=== PATIENT | female | born 1945 | race Caucasian/White ===

== ENCOUNTER 2017-07-05 13:14 | Observation (INO) | payer MEDICARE, BC ==
[2017-07-05] MEDS ORDERED: Sodium Chloride 0.9% 1000 ML 1,000 ML IV STA (13:44)
[2017-07-05] MEDS ORDERED: Zofran 4 MG/2 ML VIAL IV ONE (13:44)
--- NOTE | 2017-07-05 13:52 | ERPHSYRPT ---
- History of Present Illness Time Seen by Provider: 07/05/17 13:47 Historian: patient Exam Limitations: no limitations Patient Subjective Stated Complaint: pt started having n/v/d this morning, was able to keep some fluids down, abd cramping off and on,.no fever Triage Nursing Assessment: pt alert, resp easy, abd soft, no edema noted, moves all ext well, Physician History: patient began vomiting and diarrhea at 2 AM today. Patient has had similar episodes and thought she ate some "bad popcorn" prior to episode. Patient noted she had more than 5 episodes of diarrhea and approximately 3 episodes of vomiting. Patient also complaining of generalize, intermittent abdominal crampiness, especially with vomiting and diarrhea. Patient tried drinking a glass of water, but noted she had an episode of diarrhea and vomiting afterwards. Patient presently without any abdominal pain. Patient denies any recent fever, dysuria, frequency or urgency. Patient denies any blood in stools or urine. Timing/Duration: today (Began at 2AM), intermittent Activities at Onset: none Quality: cramping Abdominal Pain Onset Location: generalized abdomen Pain Radiation: no radiation Severity of Pain-Max: mild Severity of Pain-Current: mild Modifying Factors: Improves With: eating (worsens), vomiting (worsens) Associated Symptoms: diarrhea, vomiting, weakness, No diaphoresis, No fever/ chills, No heartburn, No loss of appetite, No shortness of breath Hx Influenza Vaccination/Date Given: Yes Hx Pneumococcal Vaccination/Date Given: Yes Immunizations Up to Date: Yes - Review of Systems Constitutional: Malaise, Weakness, No Fever, No Chills Eyes: No Symptoms Ears, Nose, & Throat: No Symptoms Respiratory: No Cough, No Dyspnea Cardiac: No Chest Pain, No Edema, No Syncope Abdominal/Gastrointestinal: Abdominal Pain, Nausea, Vomiting, Diarrhea, No Melena Genitourinary Symptoms: No Symptoms, No Dysuria, No Frequency, No Hematuria Musculoskeletal: No Symptoms (via 6), No Back Pain, No Neck Pain Skin: No Symptoms, No Rash Neurological: No Dizziness, No Focal Weakness, No Sensory Changes Psychological: No Symptoms Endocrine: No Symptoms Hematologic/Lymphatic: No Symptoms Immunological/Allergic: No Symptoms All Other Systems: Reviewed and Negative - Past Medical History Pertinent Past Medical History: Yes Cardiac History: Congenital Heart Disease, High Cholesterol, Hypertension Respiratory History: Asthma, COPD Endocrine Medical History: Diabetes Type II Other Medical History: epstin franco virus - Past Surgical History Past Surgical History: Yes Musculoskeletal: Orthopedic Surgery Female Surgical History: Hysterectomy Other Surgical History: knee surg - Social History Smoking Status: Never smoker Exposure to second hand smoke: No Drug Use: none Patient Lives Alone: No - Female History Hx Last Menstrual Period: post Hx Now: No - Nursing Vital Signs Nursing Vital Signs: Initial Vital Signs Temperature 98.2 F 07/05/17 13:24 Pulse Rate 96 H 07/05/17 13:24 Respiratory Rate 16 07/05/17 13:24 Blood Pressure 184/78 07/05/17 13:24 O2 Sat by Pulse Oximetry 97 07/05/17 13:24 Pain Scale Pain Intensity 2 - Physical Exam General Appearance: no apparent distress, alert Eye Exam: PERRL/EOMI, eyes nml inspection Ears, Nose, Throat Exam: normal ENT inspection, pharynx normal, dry mucous membranes (slighty) Neck Exam: normal inspection, non-tender, supple, full range of motion Respiratory Exam: normal breath sounds, lungs clear, No respiratory distress Cardiovascular Exam: regular rate/rhythm, normal heart sounds Gastrointestinal/Abdomen Exam: soft, No tenderness, No mass Back Exam: normal inspection, normal range of motion, No CVA tenderness, No vertebral tenderness Extremity Exam: normal inspection, normal range of motion, pelvis stable Neurologic Exam: alert, oriented x 3, cooperative, normal mood/affect, nml cerebellar function, sensation nml, No motor deficits Skin Exam: normal color, warm, dry SpO2: 97 Oxygen Delivery: Room Air - Course Nursing assessment & vital signs reviewed: Yes Ordered Tests: Active Orders 24 hr Category Date Time Status IV Insertion STAT Care 07/05/17 13:44 Active cath [Cath for Specimen-Straight] STAT Care 07/05/17 14:40 Active ABDOMEN AND PELVIS W/0 CONTRAS [CT] Stat Exams 07/05/17 14:58 Completed OBSTR/ACUTE ABDOMEN SERIES Stat Exams 07/05/17 13:45 Completed AMYLASE Stat Lab 07/05/17 14:25 Completed CBC W DIFF Stat Lab 07/05/17 14:25 Completed CMP Stat Lab 07/05/17 14:25 Completed LIPASE Stat Lab 07/05/17 14:25 Completed Manual Differential NC Stat Lab 07/05/17 14:25 Completed UA W/ MICROSCOPIC Stat Lab 07/05/17 14:25 Completed Medication Summary Discontinued Medications Generic Name Dose Route Start Last Admin Trade Name Tracy PRN Reason Stop Dose Admin Sodium Chloride 1,000 mls @ 999 mls/hr 07/05/17 13:44 07/05/17 14:17 Sodium Chloride 0.9% 1000 Ml IV 07/05/17 14:44 999 mls/hr .Q1H1M STA Administration Sodium Chloride Confirm 07/05/17 13:55 Sodium Chloride 0.9% 1000 Ml Administered 07/05/17 13:56 Dose 1,000 mls @ ud .ROUTE .STK-MED ONE Ondansetron HCl 4 mg 07/05/17 13:44 07/05/17 14:17 Zofran 4 Mg/2 Ml Vial IV 07/05/17 13:45 4 mg STAT ONE Administration Ondansetron HCl Confirm 07/05/17 13:55 Zofran 4 Mg/2 Ml Vial Administered 07/05/17 13:56 Dose 4 mg .ROUTE .STK-MED ONE Lab/Rad Data: Laboratory Result Diagrams 07/05/17 14:25 07/05/17 14:25 Laboratory Results 07/05/17 07/05/17 07/05/17 Range/Units 14:25 14:25 14:25 WBC 15.4 H (4.0-10.5) K/mm3 RBC 4.52 (4.1-5.4) M/mm3 Hgb 13.7 (12.0-16.0) gm/dl Hct 43.1 (35-47) % MCV 95.4 (78-100) fl MCH 30.3 (26-32) pg MCHC 31.8 L (32-36) g/dl RDW 13.6 (11.5-14.0) % Plt Count 231 (150-450) K/mm3 MPV 10.3 H (6-9.5) fl Segmented Neutrophils 89 H (36.0-66.0) % Band Neutrophils 4 H (0.0-2.0) % Lymphocytes (Manual) 2 L (24-44) % Monocytes (Manual) 3 (0.0-12.0) % Eosinophils (Manual) 1 (0.00-3.0) % Metamyelocytes 1 % Differential Comment NORMAL Platelet Estimate NORMAL (NORMAL) Sodium 139 (136-145) mEq/L Potassium 5.3 H (3.5-5.1) mEq/L Chloride 102 (98-107) mEq/L Carbon Dioxide 27.3 (21-32) mEq/L Anion Gap 15.2 H (5-15) MEQ/L BUN 34 H (9-20) mg/dL Creatinine 1.55 H (0.55-1.30) mg/dl Estimated GFR 35 ML/MIN Glucose 145 H (70-110) MG/DL Calcium 9.0 (8.5-10.1) mg/dL Total Bilirubin 0.50 (0.2-1.0) mg/dL AST 39 H (15-37) U/L ALT 47 (12-78) U/L Alkaline Phosphatase 80 (46-116) U/L Serum Total Protein 7.6 (6.4-8.2) gm/dL Albumin 3.8 (3.4-5.0) g/dL Amylase 55 (25-115) U/L Lipase 178 (73-393) U/L Ur Collection Type CATH Urine Color YELLOW (YELLOW) Urine Appearance CLEAR (CLEAR) Urine pH 5.0 (5-6) Ur Specific [place] 1.015 (1.005-1.025) Urine Protein NEGATIVE (Negative) Urine Ketones NEGATIVE (NEGATIVE) Urine Blood 5-10 (0-5) Marc/ul Urine Nitrite NEGATIVE (NEGATIVE) Urine Bilirubin NEGATIVE (NEGATIVE) Urine Urobilinogen NORMAL (0-1) mg/dL Ur Leukocyte Esterase NEGATIVE (NEGATIVE) Urine Microscopic RBC 0-2 (0-2) /HPF Urine Microscopic WBC 0-2 (0-5) /HPF Ur Epithelial Cells RARE (FEW) /HPF Urine Bacteria RARE (NEGATIVE) /HPF Urine Mucus SLIGHT (NEGATIVE) /HPF Urine Culture Reflexed NO (NO) Urine Glucose NEGATIVE (NEGATIVE) mg/dL Specimen Received 07/05/17 1420 - Progress Progress: unchanged Progress Note: 07/05/17 13:52 patient was given Zofran and IV fluids. Patient states she still feels nauseated. 07/05/17 16:[address] Manning (Dr. Manning was notified and agreed to admission) Will see patient in: hospital (observation) Counseled pt/family regarding: lab results (normal for), diagnosis, rad results - Departure Time of Disposition: 16:18 Departure Disposition: Observation Clinical Impression: Ileus, Dehydration Condition: Stable Critical Care Time: No Referrals: TIFFANI HICKS MD [Primary Care Provider] -
[2017-07-05] MEDS ORDERED: Sodium Chloride 0.9% 1000 ML 1,000 ML ONE (13:55)
[2017-07-05] MEDS ORDERED: Zofran 4 MG/2 ML VIAL ONE (13:55)
--- NOTE | 2017-07-05 14:12 | XRAY ---
Indication: Diarrhea and vomiting. Weakness. Comparison: None 2 views of the abdomen demonstrates nonspecific nonobstructed bowel gas pattern. Known large gallstone. Remaining solid organs unremarkable. Osseous structures intact with mild multilevel degenerative spondylosis and mild double curvature scoliosis. Single PA chest demonstrates normal heart and lungs with a few calcified granulomas. Bony thorax intact with mild degenerative changes. Comparison: 1. Nonacute nonobstructed abdomen. 2. Large gallstone as seen on CT abdomen/pelvis April 13, 2017. 3. Nonacute 1 view chest with evidence for old granulomatous disease.
[2017-07-05 14:36] LABS: Mean Cell Volume 95.4 fl (78-100); Mean Corpuscular Hemoglobin 30.3 pg (26-32); Mean Platelet Volume 10.3 fl (6-9.5); Platelet Count 231 K/mm3 (150-450); Red Blood Count 4.52 M/mm3 (4.1-5.4); Red Cell Distribution Width 13.6 % (11.5-14.0); White Blood Count 15.4 K/mm3 (4.0-10.5)
[2017-07-05 14:43] LABS: ADD URINE CULTURE? NO (NO); Bacteria RARE /HPF (NEGATIVE); Bilirubin NEGATIVE (NEGATIVE); COMPLETE URINE MICROSCOPIC? YES; Collection Type CATH; Epithelial Cells RARE /HPF (FEW); Glucose NEGATIVE (NEGATIVE); Leukocyte Esterase NEGATIVE (NEGATIVE); Mucus SLIGHT /HPF (NEGATIVE); WBC 0-2 /HPF (0-5)
[2017-07-05 14:57] LABS: ALBUMIN 3.8 g/dL (3.4-5.0); ANION GAP 15.2 MEQ/L (5-15); BILIRUBIN,TOTAL 0.5 mg/dL (0.2-1.0); Carbon Dioxide 27.3 mEq/L (21-32); Potassium 5.3 mEq/L (3.5-5.1); Total Protein 7.6 gm/dL (6.4-8.2)
[2017-07-05 15:00] LABS: BAND 4 % (0.0-2.0); Eosinophil 1 % (0.00-3.0); Metamyelocyte 1 %; Total Cells Counted 100
[2017-07-05 15:01] LABS: Platelet Estimate NORMAL (NORMAL)
--- NOTE | 2017-07-05 15:30 | XRAY ---
Indication: Abdominal pain, vomiting, diarrhea, and dizziness. Multiple contiguous axial images obtained through the abdomen and pelvis without contrast as ordered. Comparison: None Lung bases demonstrates stable well-circumscribed subcentimeter noncalcified nodule in the left lower lobe probably granulomatous. No infiltrate or effusion. Heart is not enlarged. Noncontrasted stomach and bowel loops again appear nonobstructed. Mild fluid distended small and large bowel loops throughout with some fluid leveling, ileus versus enterocolitis. Normal appendix. Stable minimal sigmoid diverticulosis without diverticulitis. No free fluid/air. Stable right pelvic kidney, fatty liver, 3 cm gallstone, and hysterectomy. Remaining liver, pancreas, spleen, adrenal glands, left kidney, ureters, and bladder appear unremarkable for noncontrast exam. There remains minimal aortoiliac calcifications without AAA. Osseous structures intact with stable degenerative changes throughout the spine and mild scoliosis. Impression: 1. Mild fluid distended small and large bowel loops with some fluid leveling, ileus versus enterocolitis. 2. Stable right pelvic kidney, sigmoid diverticulosis, large gallstone, and fatty liver. 3. Remaining CT abdomen/pelvis without contrast exam is negative. CT DI 26.97
[2017-07-05] MEDS ORDERED: Zofran 4 MG/2 ML VIAL IV PRN (16:22)
[2017-07-05] MEDS: Sodium Chloride 0.9% 1000 ML 1,000 ML IV SCH (17:59)
[2017-07-05] MEDS ORDERED: NovoLOG Insulin SQ PRN (18:13)
[2017-07-05] MEDS ORDERED: Ecotrin 325 MG PO PRN (23:11)
[2017-07-06] MEDS: Sodium Chloride 0.9% 1000 ML 1,000 ML IV SCH ×3 (01:59→18:06)
[2017-07-06 05:50] LABS: BASOPHIL % 0.1 % (0.0-0.4); Eosinophil % 1.1 % (0.00-5.0); Granulocytes % 76.3 % (36.0-66.0); Lymphocytes % 10.2 % (24.0-44.0); Mean Cell Volume 97.3 fl (78-100); Mean Platelet Volume 10.4 fl (6-9.5); Monocytes % 12.3 % (0.0-12.0); Platelet Count 189 K/mm3 (150-450); Red Blood Count 3.77 M/mm3 (4.1-5.4); Red Cell Distribution Width 14.2 % (11.5-14.0); White Blood Count 8.2 K/mm3 (4.0-10.5)
[2017-07-06 05:54] LABS: Mean Corpuscular Hemoglobin 30.7 pg (26-32)
[2017-07-06 06:16] LABS: ALBUMIN 3.1 g/dL (3.4-5.0); ANION GAP 12.5 MEQ/L (5-15); BILIRUBIN,TOTAL 0.4 mg/dL (0.2-1.0); Potassium 4.3 mEq/L (3.5-5.1); Total Protein 6.3 gm/dL (6.4-8.2)
[2017-07-06] MEDS ORDERED: Artificial Tears 15 ML OP PRN ×2 (09:05→09:45)
[2017-07-06] MEDS: Zosyn 3.375GM/100 Ml D5W 3.375 GM/100 ML IVPB IV SCH ×3 (09:19→23:14)
[2017-07-06] MEDS: ENOXAPARIN SODIUM SQ SCH (09:19)
[2017-07-06] MEDS: Ecotrin 325 MG PO PRN ×2 (14:39→22:02)
--- NOTE | 2017-07-06 14:46 | PCM.HP ---
History of Present Illness - Chief Complaint Chief Complaint: dehydration History of Present Illness: is a 72 year old female pt with an pneumatic jacketer in [place] who started having vomiting and numerous episodes of diarrhea yesterday morning at 2 am. About 11 hours later she decided to come to the ER, where she was dx wiht ileus and admitted NPO. This morning I saw her briefly; she had had fever and was started on IV zosyn. I did advance her diet to clear liquids. she has tolerated that without any vomiting; continues to have some diarrhea. Chronically, she has suffered for years from diarrhea. currently she denies any abd pain andis c/o some ERWIN. - Review of Systems Constitutional: Fever, Chills Abdominal/Gastrointestinal: Abdominal Pain, Nausea, Vomiting, Diarrhea Neurological: Headache Psychological: No Depression, No Suicidal Ideations Hematologic/Lymphatic: Anemia All Other Systems: Reviewed and Negative Medications & Allergies Home Medications: Home Medication List Clonazepam 1.5 mg PO HS 07/05/17 [History Confirmed 07/05/17] Digoxin 0.25 mg PO DAILY 07/05/17 [History Confirmed 07/05/17] Eluxadoline [Viberzi] 100 mg PO BID 07/05/17 [History Confirmed 07/05/17] Escitalopram Oxalate [Lexapro] 20 mg PO DAILY 07/05/17 [History Confirmed ] Hydrochlorothiazide 12.5 mg PO DAILY 07/05/17 [History Confirmed 07/05/17] Insulin Glargine [Lantus Insulin] 70 units SQ QAM 07/05/17 [History Confirmed ] Lisinopril 20 mg [Zestril 20 MG] 40 mg PO DAILY 07/05/17 [History Confirmed 07/05/17] Metformin HCl [Metformin HCl ER] 4 tab PO EVENING MEAL 07/05/17 [History Confirmed 07/05/17] Metoprolol Succinate 100 mg [Toprol Xl 100 MG] 200 mg PO DAILY 07/05/17 [ History Confirmed 07/05/17] Mirtazapine 30 mg PO DAILY 07/05/17 [History Confirmed 07/05/17] Omeprazole 20 MG [Prilosec 20 mg] 20 mg PO BID 07/05/17 [History Confirmed 07/05] Pravastatin Sodium 20 mg PO DAILY 07/05/17 [History Confirmed 07/05/17] Sitagliptin Phosphate [Januvia] 100 mg PO DAILY 07/05/17 [History Confirmed ] Temazepam 30 mg PO HS 07/05/17 [History Confirmed 07/05/17] Allergies/Adverse Reactions: Allergies Allergy/AdvReac Type Severity Reaction Status Date / Time acetaminophen [From Tylenol] Allergy Unknown unknown Verified 07/06/17 12:07 ibuprofen [From Motrin] Allergy Unknown unknown Verified 07/06/17 12:08 misoprostol [From Cytotec] Allergy Unknown Verified 07/06/17 12:07 amantadine Allergy Verified 07/05/17 17:28 bupropion [From Wellbutrin] Allergy Headache Verified 07/05/17 17:28 carbamazepine [From Tegretol] Allergy Verified 07/05/17 17:28 cefuroxime [From Ceftin] Allergy Verified 07/05/17 17:28 cephalexin [From Keflex] Allergy Verified 07/05/17 17:28 ciprofloxacin [From Cipro] Allergy Verified 07/05/17 17:28 clarithromycin [From Biaxin] Allergy Verified 07/05/17 17:28 fluoxetine [From Prozac] Allergy Verified 07/05/17 17:28 fluticasone [From Flonase] Allergy Verified 07/05/17 17:28 gabapentin [From Neurontin] Allergy Verified 07/05/17 17:28 lidocaine Allergy Verified 07/05/17 17:28 methylprednisolone Allergy Verified 07/05/17 17:28 montelukast [From Singulair] Allergy Verified 07/05/17 17:28 oxybutynin Allergy Verified 07/05/17 17:28 sulfamethoxazole Allergy Verified 07/05/17 17:28 sumatriptan [From Imitrex] Allergy Verified 07/05/17 17:28 terfenadine [From Seldane] Allergy Verified 07/05/17 17:28 trimethoprim [From Septra] Allergy Verified 07/05/17 17:28 - Past Medical History Past Medical History: Yes Neurological History: Migraines, Peripheral Neuropathy ENT History: Cataracts Cardiac History: Congenital Heart Disease, High Cholesterol, Hypertension Respiratory History: Asthma, COPD Endocrine Medical History: Diabetes Type II Musculoskelatal History: Degenerative Disk Disease GI Medical History: GERD, Irritable Bowel History: Renal Disease Pyscho-Social History: Anxiety, Depression Reproductive Disorders: Fibroids Comment: epstin franco virus - Female History Hx Last Menstrual Period: post Are you now?: No - Past Surgical History Past Surgical History: Yes Neuro Surgical History: No Pertinent History Cardiac History: No Pertinent History Respiratory Surgery: No Pertinent History GI Surgical History: No Pertinent History Genitourinary Surgical Hx: No Pertinent History Musculskeletal Surgical Hx: Orthopedic Surgery Female Surgical History: Hysterectomy Other Surgical History: knee surg - Social History Smoking Status: Never smoker Exposure to second hand smoke: No Alcohol: None Drug Use: none - Physical Exam Vital Signs: Vital Signs - 24 hr Temp Pulse Resp BP Pulse Ox 07/06/17 12:09 98.4 F 07/06/17 07:27 99.4 F 99 H 20 126/60 97 07/06/17 04:00 99.9 F 95 H 24 123/58 95 07/06/17 01:18 100.6 F 07/05/17 23:53 101.6 F 97 H 24 103/55 07/05/17 19:47 98.8 F 112 H 25 H 136/77 95 07/05/17 17:20 98.4 F 92 H 20 132/57 92 L 07/05/17 16:59 98.4 F 92 H 20 132/57 92 L 07/05/17 16:18 97 07/05/17 16:15 92 H 16 151/66 94 L General Appearance: no apparent distress, anxiety Neurologic Exam: oriented x 3, cooperative Eye Exam: eyes nml inspection Neck Exam: normal inspection, non-tender, supple, No lymphadenopathy Respiratory Exam: normal breath sounds, lungs clear, No crackles/rales, No rhonchi, No wheezing Cardiovascular Exam: regular rate/rhythm, normal heart sounds, murmur (II/ sys murmur) Gastrointestinal/Abdomen Exam: soft, normal bowel sounds, No tenderness, No distention, No mass, No guarding, No rebound Back Exam: normal inspection, No rash Extremity Exam: normal inspection, swelling (trace pretibial edema bilat) Results - Labs Lab/Micro Results: Accuchecks Date 07/06/17 Date 07/06/17 Date 07/06/17 Date 07/05/17 Date 07/05/17 Time 12:00 Time 07:30 Time 04:28 Time 23:57 Time 22:16 Accucheck Value: 130 Accucheck Value: 111 Accucheck Value: 94 Accucheck Value: 89 Accucheck Value: 105 Lab Results-Last 24 Hours 07/05/17 07/06/17 07/06/17 Range/Units 18:04 05:15 05:15 WBC 8.2 (4.0-10.5) K/mm3 RBC 3.77 L (4.1-5.4) M/mm3 Hgb 11.6 L (12.0-16.0) gm/dl Hct 36.7 (35-47) % MCV 97.3 (78-100) fl MCH 30.7 (26-32) pg MCHC 31.6 L (32-36) g/dl RDW 14.2 H (11.5-14.0) % Plt Count 189 (150-450) K/mm3 MPV 10.4 H (6-9.5) fl Gran % 76.3 H (36.0-66.0) % Lymphocytes % 10.2 L (24.0-44.0) % Monocytes % 12.3 H (0.0-12.0) % Eosinophils % 1.1 (0.00-5.0) % Basophils % 0.1 (0.0-0.4) % Basophils # 0.01 (0-0.4) Sodium 141 (136-145) mEq/L Potassium 4.3 (3.5-5.1) mEq/L Chloride 106 (98-107) mEq/L Carbon Dioxide 27.0 (21-32) mEq/L Anion Gap 12.5 (5-15) MEQ/L BUN 25 H (9-20) mg/dL Creatinine 1.29 (0.55-1.30) mg/dl Estimated GFR 43 ML/MIN Glucose 109 (70-110) MG/DL Hemoglobin A1c 6.4 H (4.5-6.2) Calcium 8.2 L (8.5-10.1) mg/dL Total Bilirubin 0.40 (0.2-1.0) mg/dL AST 48 H (15-37) U/L ALT 40 (12-78) U/L Alkaline Phosphatase 60 (46-116) U/L Serum Total Protein 6.3 L (6.4-8.2) gm/dL Albumin 3.1 L (3.4-5.0) g/dL Accuchecks Date 07/06/17 Date 07/06/17 Date 07/06/17 Date 07/05/17 Date 07/05/17 Time 12:00 Time 07:30 Time 04:28 Time 23:57 Time 22:16 Accucheck Value: 130 Accucheck Value: 111 Accucheck Value: 94 Accucheck Value: 89 Accucheck Value: 105 Assessment/Plan (1) Ileus Current Visit: Yes Status: Acute Assessment & Plan: treating for intra-abdominal infection wiht her Tmax to 101.6. On Zosyn IV. Advance diet to full liquids. Code(s): K56.7 - ILEUS, UNSPECIFIED (2) Chronic renal failure Current Visit: Yes Status: Acute Qualifiers: Chronic kidney disease stage: stage 3 (moderate) Qualified Code(s): N18.3 - Chronic kidney disease, stage 3 (moderate) Assessment & Plan: Sees Dr. Briscoe. (3) Dehydration Current Visit: Yes Status: Acute Assessment & Plan: improved. Will continue her on IVF. 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 Code(s): B27.90 - INFECTIOUS MONONUCLEOSIS, UNSPECIFIED WITHOUT COMPLICATION
[2017-07-07] MEDS: Sodium Chloride 0.9% 1000 ML 1,000 ML IV SCH (03:19)
[2017-07-07] MEDS: Zosyn 3.375GM/100 Ml D5W 3.375 GM/100 ML IVPB IV SCH ×2 (05:24→11:31)
[2017-07-07 06:15] LABS: BASOPHIL % 0.3 % (0.0-0.4); Eosinophil % 5.8 % (0.00-5.0); Granulocytes % 57.1 % (36.0-66.0); Lymphocytes % 19.1 % (24.0-44.0); Mean Corpuscular Hemoglobin 30.8 pg (26-32); Mean Platelet Volume 9.7 fl (6-9.5); Monocytes % 17.7 % (0.0-12.0); Platelet Count 155 K/mm3 (150-450); Red Blood Count 3.44 M/mm3 (4.1-5.4); White Blood Count 5.9 K/mm3 (4.0-10.5)
[2017-07-07 06:54] LABS: ANION GAP 11.1 MEQ/L (5-15); Carbon Dioxide 28.1 mEq/L (21-32); Potassium 3.8 mEq/L (3.5-5.1)
[2017-07-07 06:57] VITALS: PULSE 80; O2SAT 90
[2017-07-07] MEDS: ENOXAPARIN SODIUM SQ SCH (09:35)
[2017-07-07 11:18] VITALS: BP 142/62
--- NOTE | 2017-07-07 12:48 | PCM.DS ---
Discharge Summary Date of Admission: 07/05/17 16:45 Admitting Physician: ADAM DAVENPORT Primary Care Provider: TIFFANI HICKS Allergies Allergies acetaminophen [From Tylenol] Allergy (Unknown, Verified 07/06/17 12:07) unknown ibuprofen [From Motrin] Allergy (Unknown, Verified 07/06/17 12:08) unknown pt does not remember only knows its an allergy. misoprostol [From Cytotec] Allergy (Unknown, Verified 07/06/17 12:07) amantadine Allergy (Verified 07/05/17 17:28) bupropion [From Wellbutrin] Allergy (Verified 07/05/17 17:28) Headache carbamazepine [From Tegretol] Allergy (Verified 07/05/17 17:28) cefuroxime [From Ceftin] Allergy (Verified 07/05/17 17:28) cephalexin [From Keflex] Allergy (Verified 07/05/17 17:28) ciprofloxacin [From Cipro] Allergy (Verified 07/05/17 17:28) clarithromycin [From Biaxin] Allergy (Verified 07/05/17 17:28) fluoxetine [From Prozac] Allergy (Verified 07/05/17 17:28) fluticasone [From Flonase] Allergy (Verified 07/05/17 17:28) gabapentin [From Neurontin] Allergy (Verified 07/05/17 17:28) lidocaine Allergy (Verified 07/05/17 17:28) methylprednisolone Allergy (Verified 07/05/17 17:28) montelukast [From Singulair] Allergy (Verified 07/05/17 17:28) oxybutynin Allergy (Verified 07/05/17 17:28) sulfamethoxazole Allergy (Verified 07/05/17 17:28) sumatriptan [From Imitrex] Allergy (Verified 07/05/17 17:28) terfenadine [From Seldane] Allergy (Verified 07/05/17 17:28) trimethoprim [From Septra] Allergy (Verified 07/05/17 17:28) Hospital Summary - Hospital Course Hospital Course: Pt admitted through ER with ileus, started running a fever over 101 the next day and started on IV zosyn. She has had some diarrhea in the hospital (she does have chronic diarrhea; this was c. diff negative). She has tolerated clear and full liquid diets. Denying any abdominal pain. Afebrile for 24 hours. Would like to go home; will discharge home on po augmentin and bland diet x 4-5 days. - Vitals & Intake/Output Vital Signs: Vital Signs Temperature 98.1 F 07/07/17 11:17 Pulse Rate 80 07/07/17 11:17 Respiratory Rate 16 07/07/17 11:17 Blood Pressure 142/62 07/07/17 11:17 O2 Sat by Pulse Oximetry 90 L 07/07/17 11:17 Intake & Output: Intake & Output 07/05/17 07/06/17 07/07/17 07/08/17 11:59 11:59 11:59 11:59 Intake Total 1111 3188 Output Total 1050 1250 Balance 61 1938 Weight 103.873 kg - Lab Result Diagrams: 07/07/17 06:00 07/07/17 06:00 Lab Results-Last 24 Hrs: Accuchecks Date 07/07/17 Date 07/07/17 Date 07/07/17 Date 07/06/17 Date 07/06/17 Date 07/06/17 Time 12:00 Time 08:00 Time 04:17 Time 23:51 Time 19:28 Time 16:00 Accucheck Value: 117 Accucheck Value: 126 Accucheck Value: 123 Accucheck Value: 126 Accucheck Value: 144 Accucheck Value: 116 Lab Results-Last 24 Hours 07/06/17 07/07/17 07/07/17 Range/Units 18:15 06:00 06:00 WBC 5.9 (4.0-10.5) K/mm3 RBC 3.44 L (4.1-5.4) M/mm3 Hgb 10.6 L (12.0-16.0) gm/dl Hct 33.7 L (35-47) % MCV 98.0 (78-100) fl MCH 30.8 (26-32) pg MCHC 31.5 L (32-36) g/dl RDW 14.0 (11.5-14.0) % Plt Count 155 (150-450) K/mm3 MPV 9.7 H (6-9.5) fl Gran % 57.1 (36.0-66.0) % Lymphocytes % 19.1 L (24.0-44.0) % Monocytes % 17.7 H (0.0-12.0) % Eosinophils % 5.8 H (0.00-5.0) % Basophils % 0.3 (0.0-0.4) % Basophils # 0.02 (0-0.4) Sodium 142 (136-145) mEq/L Potassium 3.8 (3.5-5.1) mEq/L Chloride 107 (98-107) mEq/L Carbon Dioxide 28.1 (21-32) mEq/L Anion Gap 11.1 (5-15) MEQ/L BUN 13 (9-20) mg/dL Creatinine 1.00 (0.55-1.30) mg/dl Estimated GFR 58 ML/MIN Glucose 150 H (70-110) MG/DL Calcium 8.1 L (8.5-10.1) mg/dL Stl C. diff Tox B Gene NEGATIVE (NEGATIVE) C.difficile [id number] PRESUMPTIVE NEGATIVE (NEGATIVE) Micro Results-Entire Visit: Accuchecks Date 07/07/17 Date 07/07/17 Date 07/07/17 Date 07/06/17 Date 07/06/17 Date 07/06/17 Time 12:00 Time 08:00 Time 04:17 Time 23:51 Time 19:28 Time 16:00 Accucheck Value: 117 Accucheck Value: 126 Accucheck Value: 123 Accucheck Value: 126 Accucheck Value: 144 Accucheck Value: 116 Discharge Exam General Appearance: no apparent distress, alert, obese Neurologic Exam: oriented x 3, cooperative Skin Exam: normal color, warm, dry, No rash Respiratory Exam: normal breath sounds, lungs clear, No crackles/rales, No rhonchi, No wheezing Cardiovascular Exam: regular rate/rhythm, normal heart sounds, No murmur Gastrointestinal/Abdomen Exam: soft, normal bowel sounds, No tenderness, No distention, No mass, No guarding, No rebound Extremity Exam: No pedal edema, No swelling Back Exam: normal inspection, No rash Final Diagnosis/Problem List - Final Discharge Diagnosis/Problem (1) Colitis Current Visit: Yes Status: Acute Assessment & Plan: Have been treating as for infectious colitis (c. diff negative) - home on augmentin. Advised any return of fever, increase in pain she is to call or return to hospital. Would wait 4-5 d before resuming her home Viberzi. (2) Ileus Current Visit: Yes Status: Acute Assessment & Plan: Much improved. Home on bland diet today. (3) Chronic renal failure Current Visit: Yes Status: Chronic Assessment & Plan: Cr today was 1.0. 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 - Discharge Disposition: Home, Self-Care Condition: Stable Prescriptions: New Amoxicillin/Potassium Clav [Augmentin 875-125 Tablet] 875 mg PO BID #16 tablet Continue Metoprolol Succinate 100 mg [Toprol Xl 100 MG] 200 mg PO DAILY Lisinopril 20 mg [Zestril 20 MG] 40 mg PO DAILY Insulin Glargine [Lantus Insulin] 70 units SQ QAM Omeprazole 20 MG [Prilosec 20 mg] 20 mg PO BID Mirtazapine 30 mg PO DAILY Metformin HCl [Metformin HCl ER] 4 tab PO EVENING MEAL Digoxin 0.25 mg PO DAILY Hydrochlorothiazide 12.5 mg PO DAILY Eluxadoline [Viberzi] 100 mg PO BID Sitagliptin Phosphate [Januvia] 100 mg PO DAILY Escitalopram Oxalate [Lexapro] 20 mg PO DAILY Clonazepam 1.5 mg PO HS Pravastatin Sodium 20 mg PO DAILY Temazepam 30 mg PO HS Follow up with: TIFFANI HICKS MD [Primary Care Provider] - Forms: Patient Portal Information
== END 2017-07-07 13:15 | disposition home or self-care (01) ==
LOC: ED 13:14 → MED SURG 16:45
PROVIDERS: ADMIT Family Medicine; ATTEND Family Medicine
DX: K25.9 Gastric ulcer, unspecified as acute or chronic, without hemorrhage or perforation (principal); K56.7 Ileus, unspecified; N18.9 Chronic kidney disease, unspecified; E86.0 Dehydration; B27.90 Infectious mononucleosis, unspecified without complication; Z79.899 Other long term (current) drug therapy; G62.9 Polyneuropathy, unspecified; I51.9 Heart disease, unspecified; J44.9 Chronic obstructive pulmonary disease, unspecified; J45.909 Unspecified asthma, uncomplicated; E11.9 Type 2 diabetes mellitus without complications; K21.9 Gastro-esophageal reflux disease without esophagitis
CPT/HCPCS: 82962 ×3; 96374; 99285; 36000; 96360; 82150; 81000; 36415 ×3; 83036; 83690; 87493 ×2; 85025 ×3; 80048; 80053 ×2; 74022; 74176; P9612; G0378; J1650; J2405; J2543; A9270-GY